=== PATIENT | male | born 1965 | race Caucasian/White ===

== ENCOUNTER → 2018-04-06 | Outpatient (CLI) | payer OTHER | END | disposition home or self-care (01) | LOC: RAH 12:41 | PROVIDERS: ATTEND Emergency Medicine Emergency Medical Services | DX: M75.101 Unspecified rotator cuff tear or rupture of right shoulder, not specified as traumatic (principal); M24.811 Other specific joint derangements of right shoulder, not elsewhere classified; M25.411 Effusion, right shoulder; M25.711 Osteophyte, right shoulder | CPT/HCPCS: 73221 ==

== ENCOUNTER 2018-08-25 06:12 | Day surgery (SDC) | payer OTHER ==
[2018-08-24 15:00] VITALS: BP 132/79
[2018-08-24 15:01] LABS: EOSINOPHILS % (AUTO) 2.2 % (0.0-8.0); HEMATOCRIT 44.8 % (42-54); LYMPHOCYTES % (AUTO) 24.5 % (21.0-51.0); MEAN CORPUSCULAR HEMOGLOBIN 29.2 pg (27.0-33.0); MEAN CORPUSCULAR HGB CONC 32.3 g/dL (32.0-36.0); MEAN CORPUSCULAR VOLUME 90.3 fL (79-99); MONOCYTES % (AUTO) 8.3 % (3.0-13.0); PLATELET COUNT (AUTO) 339 K/uL (130-400); RED BLOOD CELL COUNT(AUTO) 4.97 MIL/uL (4.50-6.20); RED CELL DISTRIBUTION WIDTH 14.7 % (11.0-15.5); WHITE BLOOD COUNT (AUTO) 7.2 K/uL (4.8-10.8)
[2018-08-24 15:11] LABS: CREATININE 1.5 mg/dL (0.5-1.5)
[2018-08-25] VITALS (14 sets, daily range): BP systolic 122–140; BP diastolic 59–85
[~2018-08-25] VITALS: Ht 172.7 cm; Wt 90.9 kg
[~2018-08-25 06:12] MED LIST: TAMS0.4C32 PO
[2018-08-25] MEDS ORDERED: LACTATED RINGERS 1000ML 1,000 ML IV ONE (06:53)
[2018-08-25] MEDS: CEFAZOLIN SODIUM 1 GM VIAL ONE ×2 (07:16→09:45)
[2018-08-25] MEDS ORDERED: EPINEPHRINE 1 MG/ML 30ML VIAL IJ ONE (08:29)
[2018-08-25] MEDS ORDERED: PROPOFOL 10 MG/ML 20ML VIAL IV ONE ×2 (09:07→11:30)
[2018-08-25] MEDS ORDERED: MIDAZOLAM HCL 1 MG/ML 2ML VIAL ONE (09:08)
[2018-08-25] MEDS ORDERED: FENTANYL CITRATE PF 50 MCG/1 ML 5ML AMP IV ONE (09:08)
[2018-08-25] MEDS ORDERED: ROPIVACAINE 0.5% 5MG/ML 30ML IJ ONE (09:20)
[2018-08-25] MEDS ORDERED: ROCURONIUM 10MG/1ML SYR 10 MG/ML ML ONE (09:28)
[2018-08-25] MEDS ORDERED: DEXAMETHASONE SOD PHOSPHATE 10MG/ML 1ML VIAL ONE (11:33)
[2018-08-25] MEDS ORDERED: ONDANSETRON HCL 4 MG/2 ML VIAL ONE ×3 (11:33→14:07)
[2018-08-25] MEDS ORDERED: NEOSTIGMINE 5MG/5ML SYR IV ONE (11:36)
[2018-08-25] MEDS ORDERED: GLYCOPYRROLATE 1 MG/5 ML SYRINGE ONE (11:36)
[2018-08-25] MEDS ORDERED: NAPR-1192 PO (11:52)
[2018-08-25] MEDS ORDERED: CEPH500B PO (11:52)
[2018-08-25] MEDS ORDERED: HYDR-4457 PO (11:52)
== END 2018-08-25 14:40 | disposition home or self-care (01) ==
LOC: DAH 06:12
PROVIDERS: ATTEND Orthopaedic Surgery
DX: M75.111 Incomplete rotator cuff tear or rupture of right shoulder, not specified as traumatic (principal); M75.41 Impingement syndrome of right shoulder; N40.1 Benign prostatic hyperplasia with lower urinary tract symptoms; Z68.30 Body mass index [BMI] 30.0-30.9, adult; Z98.890 Other specified postprocedural states; Z82.49 Family history of ischemic heart disease and other diseases of the circulatory system; Z79.899 Other long term (current) drug therapy
CPT/HCPCS: 29824; 29826; 29827; 36415; 80048; 85025; A4649 ×5; A4930; A6204; C1713; G0168; J0171; J0690; J1100; J2250; J2405 ×3; J2704 ×2; J2710; J2795; J3010; J3490; J7030; J7120; A4218

== ENCOUNTER 2018-08-25 21:26 | Emergency (ER) | payer OTHER ==
[~2018-08-25 21:26] MED LIST changes: +CEPH500B PO; +HYDR-4457 PO; +NAPR-1192 PO
[2018-08-25 22:15] LABS: APPEARANCE,URINE Clear (CLEAR); BILIRUBIN,URINE Negative (NEGATIVE); COLOR,URINE Yellow (YELLOW); GLUCOSE, URINE (UA) Negative (NEGATIVE); KETONES,URINE Negative (NEGATIVE); LEUKOCYTE ESTERASE ,URINE Negative (NEGATIVE); NITRATE,URINE Negative (NEGATIVE); OCCULT BLOOD,URINE Negative (NEGATIVE); PROTEIN,URINE Negative (NEGATIVE)
== END 2018-08-25 22:43 | disposition home or self-care (01) ==
LOC: EDH 21:26
DX: R33.9 Retention of urine, unspecified (principal); R39.198 Other difficulties with micturition; Z98.890 Other specified postprocedural states
CPT/HCPCS: 51702; 81003